=== PATIENT | female | born 1990 | race Caucasian/White ===

== ENCOUNTER 2018-10-24 19:54 | Emergency (ER) | payer OTHER ==
--- NOTE | 2018-10-24 19:56 | UC ---
Cardiac HPI - HPI Summary HPI Summary: 28 yo female presents with chest pain. She tells me that 1 month ago she developed midline and left sided chest pain that was worse with deep breaths, movement, and palpation. Also seemed worse with exercise. She assumed this was a muscle strain and took ibuprofen with no relief. She scheduled an appointment with a physical therapist 2 weeks after this and was seen about 1.5 weeks ago. She tells me that the PT evaluated her and suggested that it could be costochondritis, but advised to get further evaluated. Yossi is the first time pt has had time to be seen. Over the last 2 days her pain has been much improved - no longer TTP, no longer pain with movement or at rest, but has some pain with deep breaths. Of note, she returned via plane from [facility] about 2 days prior to her symptoms beginning. Pt's mother has a hx of blood clots in her legs, but pt has never had a blood clot. Denies recent illness, cough, SOB, palpitations, abdominal pain, n/v, leg cramps, hx of cancer, OBC, or smoking hx. PMHx is none. - History of Current Complaint Stated Complaint: CHEST PAIN Time Seen by Provider: 10/24/18 19:56 Hx Obtained From: Patient Onset/Duration: Sudden Onset Initial Severity: Mild Current Severity: Mild Pain Intensity: 4 - Allergy/Home Medications Allergies/Adverse Reactions: Allergies Allergy/AdvReac Type Severity Reaction Status Date / Time No Known Allergies Allergy Verified 10/24/18 20:16 Home Medications: Home Medications Ibuprofen 600 mg PO PRN 10/24/18 [History] PMH/Surg Hx/FS Hx/Imm Hx - Additional Past Medical History Additional PMH: None - Surgical History Surgical History: None - Family History Known Family History: Positive: Hypertension, Other - Blood clots in mother - Social History Occupation: Employed Full-time Lives: With Family Alcohol Use: Occasionally Substance Use Type: None Smoking Status (MU): Never Smoked Tobacco Review of Systems All Other Systems Reviewed And Are Negative: Yes Constitutional: Positive: Negative Skin: Positive: Negative Eyes: Positive: Negative ENT: Positive: Negative Respiratory: Positive: Negative Cardiovascular: Positive: Chest Pain Gastrointestinal: Positive: Negative Genitourinary: Positive: Negative Neurovascular: Positive: Negative Neurological: Positive: Negative Psychological: Positive: Negative Physical Exam - Summary Physical Exam Summary: GENERAL: NAD. WDWN. No pain distress. SKIN: No rashes, sores, lesions, or open wounds. HEENT: Head: AT/NC Eyes: EOM intact. Conjunctiva clear without inflammation or discharge. Ears: Hearing grossly normal. TMs intact, no bulging, erythema, or edema. Nose: Nasal mucosa pink and moist. NTTP maxillary and frontal sinus. Throat: Posterior oropharynx without exudates, erythema, or tonsillar enlargement. Uvula midline. NECK: Supple. Nontender. No lymphadenopathy. CHEST: Anterior chest NTTP. CTAB. No r/r/w. No accessory muscle use. Breathing comfortably and in no distress. CV: RRR. Without m/r/g. Pulses intact. Cap refill <2seconds ABDOMEN: Soft. NTTP. No distention or guarding. No CVA tenderness. Bowel sounds present NEURO: Alert. PSYCH: Age appropriate behavior. Triage Information Reviewed: Yes Vital Signs: Vital Signs: Temp Pulse Resp BP Pulse Ox 98.9 F 80 16 129/71 100 10/24/18 20:07 10/24/18 20:07 10/24/18 20:07 10/24/18 20:07 10/24/18 20:07 Vital Signs Reviewed: Yes - Assessment/Plan Course Of Treatment: EKbpm NSR with minimal ST depression in inferior leads as read by Dr. Hale. This ST depression could be due to the fact that she is very thin. She does have a few risk factors for a PE including fam hx of blood clot, recent travel, and her JACKSON. This could also be costochondritis given that her pain is significantly improved and was previously TTP. At this time, I feel it is most important to r/o a PE before attributing her symptoms to costochondritis/MSK - therefore I have recommended pt be further evaluated in the ED. She was agreeable to this and will go this evening. - Clinical Impression Provider Diagnosis: Chest pain, JACKSON (dyspnea on exertion), Family history of blood clots Discharge - Sign-Out/Discharge Documenting (check all that apply): Patient Departure All imaging exams completed and their final reports reviewed: No Studies - Discharge Plan Condition: Stable Disposition: HOME-RECOMMEND TO ED Referrals: No Primary Care Phys,NOPCP [Primary Care Provider] - Additional Instructions: Please go to the ER for further evaluation of your chest pain - although it is improved now, you have several risk factors for a blood clot in your lungs and further evaluation is needed. - Billing Disposition and Condition Condition: STABLE Disposition: Home-Recommend to ED
[2018-10-24 20:17] VITALS: BP 129/71
== END 2018-10-24 20:54 | disposition home health service (06) ==
LOC: UCEAST 19:54
DX: R07.89 Other chest pain (principal); R06.00 Dyspnea, unspecified; R00.2 Palpitations; Z83.2 Family history of diseases of the blood and blood-forming organs and certain disorders involving the immune mechanism
CPT/HCPCS: 93005; 99202; G0463

== ENCOUNTER 2018-10-24 21:29 | Emergency (ER) | payer OTHER ==
[2018-10-25] MEDS ORDERED: Ibuprofen TAB* 600 MG PO ONE (00:46)
--- NOTE | 2018-10-25 00:52 | ED ---
HPI Chest Pain - HPI Summary HPI Summary: This patient is a 28 year old female presenting to [facility] with a chief complaint of chest pain since 1 month ago. Patient states that she had chest pain 1 month ago, which has persisted until today. During the first 2 weeks, patient states that the pain was very sharp for the first 2 weeks, but has dulled since. Patient was seen at today and they referred her to the ED for a possible blood clot. The pain is rated 5/10 in severity. Symptoms aggravated by nothing. Symptoms alleviated by nothing. Patient denies cough. - History of Current Complaint Chief Complaint: EDChestWallPain Time Seen by Provider: 10/25/18 00:31 Hx Obtained From: Patient Hx Last Menstrual Period: 2-3 weeks ago Onset/Duration: Started Weeks Ago - 4, Still Present Timing: Constant Initial Severity: Moderate Current Severity: Mild Pain Intensity: 5 Pain Scale Used: 0-10 Numeric Chest Pain Location: Diffuse Chest Pain Radiates: No Character: Sharp/Stabbing - initially Aggravating Factor(s): Nothing Alleviating Factor(s): Nothing Associated Signs and Symptoms: Positive: Negative - cough - Allergy/Home Medications Allergies/Adverse Reactions: Allergies Allergy/AdvReac Type Severity Reaction Status Date / Time No Known Allergies Allergy Verified 10/24/18 20:16 PMH/Surg Hx/FS Hx/Imm Hx Previously Healthy: Yes Cardiovascular History: Denies: Hx Embolism Opthamlomology History: Denies: Hx Legally Blind EENT History: Denies: Hx Deafness - Immunization History Immunizations Up to Date: Yes Infectious Disease History: No Infectious Disease History: Denies: Traveled Outside the [place] in Last 30 Days - Family History Known Family History: Positive: Hypertension, Other - Blood clots in mother - Social History Lives: Alone Alcohol Use: Occasionally Hx Substance Use: No Substance Use Type: Reports: None Hx Tobacco Use: No Smoking Status (MU): Never Smoked Tobacco Review of Systems Negative: Fever Positive: Chest Pain Negative: Cough All Other Systems Reviewed And Are Negative: Yes Physical Exam - Summary Physical Exam Summary: VITAL SIGNS: Reviewed. GENERAL: Patient is a well-developed and nourished (MALE OR FEMALE) who is lying comfortable in the stretcher. Patient is not in any acute respiratory distress. HEAD AND FACE: No signs of trauma. No ecchymosis, hematomas or skull depressions. No sinus tenderness. EYES: PERRLA, EOMI x 2, No injected conjunctiva, no nystagmus. EARS: Hearing grossly intact. Ear canals and tympanic membranes are within normal limits. MOUTH: Oropharynx within normal limits. NECK: Supple, trachea is midline, no adenopathy, no JVD, no carotid bruit, no c- spine tenderness, neck with full ROM. CHEST: Mild chest wall tenderness, left more than right. LUNGS: Clear to auscultation bilaterally. No wheezing or crackles. CVS: Regular rate and rhythm, S1 and S2 present, no murmurs or gallops appreciated. ABDOMEN: Soft, non-tender. No signs of distention. No rebound no guarding, and no masses palpated. Bowel sounds are normal. EXTREMITIES: FROM in all major joints, no edema, no cyanosis or clubbing. NEURO: Alert and oriented x 3. No acute neurological deficits. Speech is normal and follows commands. SKIN: Dry and warm Triage Information Reviewed: Yes Vital Signs On Initial Exam: Initial Vitals Temp Pulse Resp BP Pulse Ox 97.6 F 72 16 123/82 100 10/24/18 21:31 10/24/18 21:31 10/24/18 21:31 10/24/18 21:31 10/24/18 21:31 Vital Signs Reviewed: Yes Diagnostics - Vital Signs Vital Signs Temp Pulse Resp BP Pulse Ox 10/25/18 00:27 71 100 10/25/18 00:25 66 119/72 100 10/24/18 23:49 98.3 F 65 16 105/72 100 10/24/18 21:31 97.6 F 72 16 123/82 100 - Laboratory Lab Statement: Any lab studies that have been ordered have been reviewed, and results considered in the medical decision making process. Chest Pain Course/Dx - Course Course Of Treatment: This patient is a 28 year old female presenting to [facility] with a chief complaint of chest pain since 1 month ago. Patient states that she had chest pain 1 month ago, which has persisted until today. During the first 2 weeks, patient states that the pain was very sharp for the first 2 weeks, but has dulled since. The pt is hemodynamically stable, alert and oriented x3. Patients O2 saturation is 100% on room air. Patient is not tachycardic and is comfortable. There are no risk factors for PE or thromboembolism. Pain is most likely musculoskeletal. Patient is advised to have plenty of rest and use anti- inflammatory drugs as needed. Patient will be discharged with a dx of chest wall pain and a prescription for ibuprofen. Patient is advised to follow up with PCP in 2 days. The patient is agreeable with this plan. - Diagnoses Provider Diagnoses: Chest wall pain Discharge - Sign-Out/Discharge Documenting (check all that apply): Patient Departure Patient Received Moderate/Deep Sedation with Procedure: No - Discharge Plan Condition: Stable Disposition: HOME Prescriptions: Ibuprofen TAB* [Motrin TAB* 600 MG] 600 mg PO TID #30 tab Patient Education Materials: Chest Wall Pain (ED) Referrals: No Primary Care Phys,NOPCP [Primary Care Provider] - Additional Instructions: Get rest, use hot compresses and Ibuprofen as needed. Return to the ED for any new or worsening symptoms. - Attestation Statements Document Initiated by Scribe: Yes Documenting Scribe: Ethel López Provider For Whom Scribe is Documenting (Include Credential): Sohna Tripathi MD Scribe Attestation: Ethel Liao, scribed for Sohan Tripathi MD on 10/25/18 at 0053. Status of Scribe Document: Ready
[2018-10-25 01:00] VITALS: BP 102/67
== END 2018-10-25 01:03 | disposition home or self-care (01) ==
LOC: ED 21:29
DX: R07.89 Other chest pain (principal)
CPT/HCPCS: 99283; A9270-GY